=== PATIENT | female | born 1950 ===

== ENCOUNTER 2017-10-16 13:53 | Outpatient (CLI) | payer OTHER | END 2017-10-16 14:10 | disposition home or self-care (01) | LOC: RAD 13:53 | DX: M12.862 Other specific arthropathies, not elsewhere classified, left knee (principal); M17.12 Unilateral primary osteoarthritis, left knee ==

== ENCOUNTER 2019-01-16 09:55 | Outpatient (CLI) | payer OTHER | END 2019-01-16 11:00 | disposition home or self-care (01) | LOC: NUCLEAR 09:55 | DX: G45.9 Transient cerebral ischemic attack, unspecified (principal) ==

== ENCOUNTER 2019-04-23 12:58 | Outpatient (CLI) | payer OTHER | END 2019-04-23 12:59 | disposition home or self-care (01) | LOC: RAD 12:58 | DX: J44.9 Chronic obstructive pulmonary disease, unspecified (principal) ==